=== PATIENT | male | born 1930 | race Caucasian/White ===

== ENCOUNTER 2017-10-28 14:16 | Inpatient (IN) | payer MEDICARE, BC ==
[~2017-10-28] VITALS: Ht 182.9 cm; Wt 89.9 kg
[2017-10-28] MEDS ORDERED: methylPREDNISolone SOD SUCC 125 MG/2 ML VIAL IV ONE (14:45)
[2017-10-28] MEDS ORDERED: IPRATROPIUM BROMIDE 0.5 MG/2.5 ML NEBU NEB ONE (14:45)
[2017-10-28] MEDS ORDERED: ALBUTEROL SULFATE 2.5 MG/3 ML NEBU NEB ONE (14:45)
[2017-10-28] MEDS ORDERED: methylPREDNISolone SOD SUCC 125 MG/2 ML VIAL ONE (14:45)
[2017-10-28] MEDS ORDERED: IPRATROPIUM BROMIDE 0.5 MG/2.5 ML NEBU ONE (14:48)
[2017-10-28] MEDS ORDERED: ALBUTEROL SULFATE 2.5 MG/ 0.5 ML NEBU ONE (14:48)
[2017-10-28 14:53] LABS: BASOPHILS % (AUTO) 0.2 % (0.0-2.0); HEMATOCRIT 33.4 % (36.7-47.1); HEMOGLOBIN 10.6 g/dL (12.5-16.3); LYMPHOCYTES # (AUTO) 0.4 K/uL (20.0-40.0); LYMPHOCYTES % (AUTO) 4.1 % (20.5-51.5); MEAN CORPUSCULAR HEMOGLOBIN 29.5 uug (23.8-33.4); MEAN CORPUSCULAR HGB CONC 32 g/dL (32.5-36.3); MEAN CORPUSCULAR VOLUME 92.8 fL (73.0-96.2); MONOCYTES # (AUTO) 0.7 K/uL (2.0-10.0); MONOCYTES % (AUTO) 6.5 % (0.0-11.0); NEUTROPHILS % (AUTO) 89.2 % (38.5-71.5); PLATELET COUNT (AUTO) 303 K/uL (152-348); WHITE BLOOD COUNT (AUTO) 10.1 K/uL (3.6-10.2)
[2017-10-28] MEDS ORDERED: MIRT15TA7 PO (15:03)
[2017-10-28] MEDS ORDERED: WARF2.5T85 PO (15:03)
[2017-10-28] MEDS ORDERED: MONT10TA22 PO (15:03)
[2017-10-28] MEDS ORDERED: IPRA3AMP IH (15:03)
[2017-10-28] MEDS ORDERED: CLOP75TA15 PO (15:03)
[2017-10-28] MEDS ORDERED: POLY15DR57 OP (15:03)
[2017-10-28] MEDS ORDERED: METH4TAB17 PO (15:03)
[2017-10-28] MEDS ORDERED: TRIA15CR2 TP (15:03)
[2017-10-28] MEDS ORDERED: MENT118G TP (15:03)
[2017-10-28] MEDS ORDERED: TAMS0.4C34 PO (15:03)
[2017-10-28] MEDS ORDERED: FINA5TAB11 PO (15:03)
[2017-10-28] MEDS ORDERED: POTA-88 PO (15:03)
[2017-10-28] MEDS ORDERED: ALBU5SOL17 IH (15:03)
[2017-10-28] MEDS ORDERED: CARV12.52 PO (15:03)
[2017-10-28] MEDS ORDERED: ROSU10TA27 PO (15:03)
[2017-10-28] MEDS ORDERED: AMLO5TAB2 PO (15:03)
[2017-10-28] MEDS ORDERED: IRBE150T28 PO (15:03)
[2017-10-28] MEDS ORDERED: ALBU2.5V38 IH (15:03)
[2017-10-28] MEDS ORDERED: FLUT1BLS4 IH (15:03)
[2017-10-28] MEDS ORDERED: FURO20TA4 PO (15:03)
[2017-10-28] MEDS ORDERED: ALPR0.255 PO (15:03)
--- NOTE | 2017-10-28 15:16 | NUR ---
Patient is resting comfortably in bed with eyes closed, pending results and disposition.
[2017-10-28 15:18] LABS: CARBON DIOXIDE 25 mmol/L (21-32); CHLORIDE 110 mmol/L (98-107); CREATININE 2.1 mg/dL (0.6-1.3); GLUCOSE 143 mg/dL (74-106); UREA NITROGEN, BLOOD 60 mg/dL (7-18)
[2017-10-28 15:22] LABS: BAND % (MANUAL) 5 % (0-10); LYMPHOCYTES % (MANUAL) 5 % (20-40); MONOCYTES % (MANUAL) 4 % (2-10)
[2017-10-28 15:23] LABS: METAMYELOCYTES % 2 % (0-1); NEUTROPHILS % (MANUAL) 84 % (42-75)
[2017-10-28 15:33] LABS: ALANINE AMINOTRANSFERASE 56 U/L (16-63); ALKALINE PHOSPHATASE 88 U/L (50-136); ASPARTATE AMINOTRANSFERASE 32 U/L (15-37); BILIRUBIN,TOTAL 0.9 mg/dL (0.2-1.0); CREATINE KINASE, TOTAL 89 U/L (39-308)
[2017-10-28] MEDS ORDERED: FUROSEMIDE 20 MG/2 ML VIAL IV ONE ×2 (16:02→16:15)
[2017-10-28] MEDS ORDERED: CEFTRIAXONE 1 G VIAL ONE (16:12)
[2017-10-28] MEDS ORDERED: FUROSEMIDE 40 MG/4 ML VIAL ONE (16:12)
[2017-10-28] MEDS ORDERED: INSULIN REGULAR, HUMAN 1,000 UNITS/10 ML VIAL IV ONE (16:14)
[2017-10-28] MEDS ORDERED: SODIUM BICARBONATE 8.4% 50 MEQ/50 ML VIAL IV ONE (16:15)
[2017-10-28] MEDS ORDERED: DEXTROSE 50% 50 ML DISP.SYRIN IV ONE (16:15)
[2017-10-28] MEDS ORDERED: CEFTRIAXONE 1 G in IV DEXTROSE 5% 50 ML IV ONE (16:15)
--- NOTE | 2017-10-28 16:16 | NUR ---
IV Lasix order verified with Dr Marie: Only 40mg IV Lasix and not 80mg IV.
[2017-10-28] MEDS ORDERED: SODIUM BICARBONATE 8.4% 50 MEQ/50 ML DISP.SYRIN IV ONE (16:21)
[2017-10-28] MEDS ORDERED: DEXTROSE 50% 50 ML DISP.SYRIN ONE (16:30)
[2017-10-28] MEDS ORDERED: INSULIN REGULAR, HUMAN 300 UNIT/3 ML VIAL ONE (16:30)
--- NOTE | 2017-10-28 16:39 | NUR ---
Patient is resting comfortably on gurney, eyes are closed, mouth breathing noted, respiration: nonlabored with occasional congestive coughing heard. Monitored closely.
--- NOTE | 2017-10-28 16:55 | NUR ---
Nursing update given to 2nd floor nurse Yoselin regarding serum potassium treatment & IV antibiotic medicine given.
--- NOTE | 2017-10-28 16:55 | NUR ---
patient was received by ER, vitals recorded, patient oriented to room, but patient's concentration was very poor, and reports being tired. Patient on 2L O2, saturation 92%. Wounds documented, and pictures taken. Patients urine collected for lab. Bed in low position, side rails up x2, bed alarm on.
[2017-10-28 17:14] VITALS: BP 104/76
[2017-10-28] MEDS ORDERED: MORPHINE SULFATE 2 MG/1 ML DISP.SYRIN IV PRN (18:45)
[2017-10-28] MEDS ORDERED: ONDANSETRON 4 MG/2 ML VIAL IV PRN (18:45)
[2017-10-28] MEDS ORDERED: MORPHINE SULFATE 4 MG/1 ML DISP.SYRIN IV PRN (19:00)
[2017-10-28] MEDS: LEVOFLOXACIN 250MG /D5W 250 MG in PREMIXED 1 EACH IV SCH (19:41)
[2017-10-28] MEDS: Z GUARD REMEDY PASTE 57 GM TUBE TOP SCH (19:41)
[2017-10-28 20:00] VITALS: BP 123/65
--- NOTE | 2017-10-28 20:10 | NUR ---
Received patient in bed resting comfortably, no signs of distress noted. Vital signs are WNL, A-paced on the monitor. Levaquin 250 mg IVPB adm as ordered.
[2017-10-28] MEDS ORDERED: DOCUSATE SODIUM 250 MG CAPSULE PO SCH (21:00)
[2017-10-28 21:09] LABS: *BILIRUBIN,URIN NEGATIVE (NEGATIVE); *BLOOD, URINE NEGATIVE (NEGATIVE); *CLARITY,URINE CLEAR (CLEAR); *COLOR,URINE YELLOW (YELLOW); *KETONES,URINE NEGATIVE (NEGATIVE); *PROTEIN,URINE 1+ (NEGATIVE); *UROBILINOGEN,URINE 0.2 E.U./dl (NORMAL); LEUKOCYTE ESTERASE ,URINE NEGATIVE (NEGATIVE); NITRITE, URINE NEGATIVE (NEGATIVE); PH,URINE 5.5 (5.0-8.0); UGLUCOSE NEGATIVE (NEGATIVE)
[2017-10-28] MEDS: ACETAMINOPHEN 325 MG TABLET PO PRN (21:10)
[2017-10-28] MEDS: MONTELUKAST SODIUM 10 MG TABLET PO SCH (21:10)
[2017-10-28] MEDS: MIRTAZAPINE 15 MG TABLET PO SCH (21:10)
[2017-10-28] MEDS: TAMSULOSIN HCL 0.4 MG CAP.SR.24H PO SCH (21:10)
[2017-10-28] MEDS: DOCUSATE SODIUM 100 MG CAPSULE PO SCH (21:10)
[2017-10-28 21:17] LABS: MUCUS,URINE MODERATE /LPF (0-FEW); RBC,URINE 0-3 /HPF (0-3); WBC,URINE 0-3 /HPF (0-3)
[2017-10-29] VITALS: BP 162/81
[2017-10-29 04:00] VITALS: BP 172/83
[2017-10-29] MEDS: ALBUTEROL SULFATE 2.5 MG/3 ML NEBU NEB PRN ×4 (05:40→22:57)
[2017-10-29] MEDS: PANTOPRAZOLE SODIUM 40 MG TABLET.DR PO SCH (05:48)
[2017-10-29] MEDS: FUROSEMIDE 20 MG/2 ML VIAL IV SCH (05:52)
--- NOTE | 2017-10-29 05:55 | NUR ---
Sponge bath provided, exertional SOB & wheezing noted. Breathing treatment provided by RT, early dose of Lasix 20 mg IVP adm. A-paced on the monitor w/ HR 90s.
[2017-10-29 06:43] VITALS: BP 147/80
--- NOTE | 2017-10-29 06:44 | NUR ---
Patient calm at this time post breathing treatment. Re-checked BP- shows 147/80, A-paced on the monitor w/ HR 60.
--- NOTE | 2017-10-29 07:15 | NUR ---
RECEIVED REPORT FROM AWNING FINISHER NURSE, PATIENT IN BED ASLEEP AND AROUSABLE. NO DISTRESS NOTED AT THIS TIME, BED IN LOW POSITION, SIDE RAILS UP X2.
[2017-10-29 07:17] LABS: BASOPHILS % (AUTO) 0.1 % (0.0-2.0); HEMATOCRIT 34.2 % (36.7-47.1); LYMPHOCYTES # (AUTO) 0.4 K/uL (20.0-40.0); LYMPHOCYTES % (AUTO) 4.5 % (20.5-51.5); MEAN CORPUSCULAR HEMOGLOBIN 29.6 uug (23.8-33.4); MEAN CORPUSCULAR HGB CONC 32 g/dL (32.5-36.3); MEAN CORPUSCULAR VOLUME 92.3 fL (73.0-96.2); MONOCYTES # (AUTO) 0.3 K/uL (2.0-10.0); MONOCYTES % (AUTO) 3.5 % (0.0-11.0); NEUTROPHILS # (AUTO) 7.9 K/uL (1.8-8.9); NEUTROPHILS % (AUTO) 91.9 % (38.5-71.5); PLATELET COUNT (AUTO) 304 K/uL (152-348); WHITE BLOOD COUNT (AUTO) 8.6 K/uL (3.6-10.2)
[2017-10-29 08:12] LABS: THYROID STIMULATING HORMONE 1.206 mIU/mL (0.358-3.740)
[2017-10-29 08:30] LABS: ALANINE AMINOTRANSFERASE 61 U/L (16-63); ALKALINE PHOSPHATASE 87 U/L (50-136); ASPARTATE AMINOTRANSFERASE 33 U/L (15-37); BILIRUBIN,TOTAL 0.5 mg/dL (0.2-1.0); CARBON DIOXIDE 23 mmol/L (21-32); CHLORIDE 107 mmol/L (98-107); CHOLESTEROL 138 mg/dL (<200); GLUCOSE 133 mg/dL (74-106); HDL CHOLESTEROL 60 mg/dL (40-60); MAGNESIUM 2.7 mg/dL (1.8-2.4); PHOSPHOROUS 6.3 mg/dL (2.5-4.9); POTASSIUM 5.8 mmol/L (3.5-5.1); TRIGLYCERIDES 37 MG/DL (30-150); UREA NITROGEN, BLOOD 61 mg/dL (7-18)
[2017-10-29 08:37] LABS: IRON, SERUM 34 ug/dL (50-175)
[2017-10-29] MEDS: FINASTERIDE 5 MG TABLET PO SCH (08:41)
[2017-10-29] MEDS: CLOPIDOGREL 75 MG TABLET PO SCH (08:44)
[2017-10-29] MEDS: AMLODIPINE 5 MG TABLET PO SCH (08:44)
[2017-10-29] MEDS: Z GUARD REMEDY PASTE 57 GM TUBE TOP SCH ×2 (08:46→19:58)
[2017-10-29] MEDS ORDERED: TRIAMCINOLONE ACET 0.5% CREAM 15 GM TUBE TP SCH (09:00)
[2017-10-29 11:11] VITALS: BP 126/53
[2017-10-29] MEDS ORDERED: BUMETANIDE INJ 3 MG in IV DEXTROSE 5% 38 ML IV ONE ×2 (12:00→14:00)
[2017-10-29] MEDS ORDERED: BUMETANIDE 1 MG/4 ML VIAL ONE (12:38)
--- NOTE | 2017-10-29 12:47 | NUR ---
WOUND CARE CONSULT: LIMITED ASSESSMENT TODAY DUE TO PT HAVING PROCEDURE/THEN SERVED LUNCH TRAY. RT LOWER LEG NOTED TO HAVE DRY ABRASIONS AND BRUISING. NO DRAINAGE NOTED. CURRENT ANGEL SCORE IS 19. ALL SKIN PROTECTION MEASURES IN PLACE AND DISCUSSED WITH NURSING STAFF. WILL SEE PRN. GOMES IN AGREEMENT WITH PLAN OF CARE. Addendum: 10/29/17 at 1249 by JAD MENESES RN Amended: Links added.
[2017-10-29 14:34] LABS: *BILIRUBIN,URIN NEGATIVE (NEGATIVE); *BLOOD, URINE NEGATIVE (NEGATIVE); *CLARITY,URINE CLEAR (CLEAR); *COLOR,URINE YELLOW (YELLOW); *KETONES,URINE NEGATIVE (NEGATIVE); *PROTEIN,URINE NEGATIVE (NEGATIVE); *UROBILINOGEN,URINE 0.2 E.U./dl (NORMAL); LEUKOCYTE ESTERASE ,URINE NEGATIVE (NEGATIVE); NITRITE, URINE NEGATIVE (NEGATIVE); UGLUCOSE NEGATIVE (NEGATIVE)
[2017-10-29 14:43] LABS: *CREATININE,URINE 41.6 mg/dL (30-125); *URINE TOTAL PROTEIN RANDOM 24.1 mg/dL (<150/24HR)
[2017-10-29 14:45] LABS: BACTERIA,URINE NONE SEEN /HPF (NONE SEEN); RBC,URINE 0-3 /HPF (0-3); SQUAMOUS EPITHELIAL CELL,UR FEW /HPF (NONE SEEN); WBC,URINE 0-3 /HPF (0-3)
[2017-10-29 15:04] VITALS: BP 127/59
--- NOTE | 2017-10-29 18:21 | NUR ---
Patient has been cooperative with care, left arm swollen and was elevated. Arm band was cut off, swelling slowly subsided by end of shift. Currently patient in bed awake, no distress noted, bed in low position, side rails up x2, bed alarm on. Patient was evaluated by PT, OT, and ST. See all recommendations in notes.
[2017-10-29] MEDS: LEVOFLOXACIN 250MG /D5W 250 MG in PREMIXED 1 EACH IV SCH (19:52)
[2017-10-29] MEDS: TAMSULOSIN HCL 0.4 MG CAP.SR.24H PO SCH (19:57)
[2017-10-29] MEDS: MONTELUKAST SODIUM 10 MG TABLET PO SCH (19:57)
[2017-10-29] MEDS: DOCUSATE SODIUM 100 MG CAPSULE PO SCH (19:57)
[2017-10-29] MEDS: ALPRAZOLAM 0.25 MG TABLET PO PRN (19:57)
[2017-10-29] MEDS: MIRTAZAPINE 15 MG TABLET PO SCH (19:57)
[2017-10-29] MEDS: TRIAMCINOLONE ACET 0.1% CREAM 15 GM TUBE TOP PRN (19:59)
[2017-10-29 20:00] VITALS: BP 118/59
[2017-10-30] VITALS: BP 128/89
[2017-10-30] MEDS: ACETAMINOPHEN 325 MG TABLET PO PRN ×2 (01:23→14:04)
[2017-10-30] MEDS: ALBUTEROL SULFATE 2.5 MG/3 ML NEBU NEB PRN (02:17)
[2017-10-30] MEDS: FUROSEMIDE 20 MG/2 ML VIAL IV SCH (03:51)
[2017-10-30 04:00] VITALS: BP 145/69
--- NOTE | 2017-10-30 04:05 | NUR ---
Audible wheezing noted, early dose of Lasix 20 mg IVP adm. Incontinence care provided, repositioned in bed. Tele A-paced.
[2017-10-30] MEDS: PANTOPRAZOLE SODIUM 40 MG TABLET.DR PO SCH (05:25)
--- NOTE | 2017-10-30 06:28 | NUR ---
Fairly rested, frequent urination noted, patient on daily Lasix. Breathing treatment provided PRN. A-pacing on the monitor. Vital signs are WNL.
[2017-10-30 06:34] LABS: BASOPHILS % (AUTO) 0.1 % (0.0-2.0); EOSINOPHILS % (AUTO) 0.2 % (0.0-7.0); HEMATOCRIT 33.7 % (36.7-47.1); HEMOGLOBIN 10.8 g/dL (12.5-16.3); LYMPHOCYTES # (AUTO) 0.6 K/uL (20.0-40.0); LYMPHOCYTES % (AUTO) 4.9 % (20.5-51.5); MEAN CORPUSCULAR HEMOGLOBIN 29.7 uug (23.8-33.4); MEAN CORPUSCULAR HGB CONC 32 g/dL (32.5-36.3); MEAN CORPUSCULAR VOLUME 92.4 fL (73.0-96.2); MONOCYTES # (AUTO) 1.3 K/uL (2.0-10.0); MONOCYTES % (AUTO) 10.8 % (0.0-11.0); NEUTROPHILS # (AUTO) 10.2 K/uL (1.8-8.9); PLATELET COUNT (AUTO) 291 K/uL (152-348); RED BLOOD CELL COUNT(AUTO) 3.64 MIL/uL (4.06-5.63); WHITE BLOOD COUNT (AUTO) 12.2 K/uL (3.6-10.2)
[2017-10-30 07:25] LABS: ALANINE AMINOTRANSFERASE 65 U/L (16-63); ALKALINE PHOSPHATASE 74 U/L (50-136); ASPARTATE AMINOTRANSFERASE 27 U/L (15-37); BILIRUBIN,TOTAL 0.6 mg/dL (0.2-1.0); CARBON DIOXIDE 29 mmol/L (21-32); CHLORIDE 107 mmol/L (98-107); CREATINE KINASE, TOTAL 57 U/L (39-308); CREATININE 2.1 mg/dL (0.6-1.3); GLUCOSE 96 mg/dL (74-106); MAGNESIUM 2.5 mg/dL (1.8-2.4); PHOSPHOROUS 5.3 mg/dL (2.5-4.9); POTASSIUM 4.9 mmol/L (3.5-5.1); TOTAL PROTEIN, SERUM 6.2 g/dL (6.4-8.2); UREA NITROGEN, BLOOD 71 mg/dL (7-18)
--- NOTE | 2017-10-30 08:00 | NUR ---
AWAKE ALERT X3 COOPERATE WELL NO SOB OR PAIN ON ASPIRATION AND FALL PRECAUTION BED ALARM ON AND CALL LIGHT IN REACH INSTRUCTION TO CALL WHEN NEED
[2017-10-30] MEDS: FINASTERIDE 5 MG TABLET PO SCH (08:17)
[2017-10-30] MEDS: CLOPIDOGREL 75 MG TABLET PO SCH (08:18)
[2017-10-30] MEDS: AMLODIPINE 5 MG TABLET PO SCH (08:18)
[2017-10-30] MEDS: TRIAMCINOLONE ACET 0.1% CREAM 15 GM TUBE TOP PRN (08:19)
[2017-10-30] MEDS: Z GUARD REMEDY PASTE 57 GM TUBE TOP SCH ×2 (08:19→20:07)
[2017-10-30 11:57] VITALS: BP 116/56
--- NOTE | 2017-10-30 12:00 | NUR ---
DR LEE SEE PATIENT AND ORDER INFLUENZA SCREEN /NOSE SWAB SENT TO LAB ORDER
--- NOTE | 2017-10-30 13:42 | NUR ---
WOUND CARE CONSULT: PT SEEN FOR FULL SKIN ASSESSMENT. BLANCHABLE REDNESS TO BUTTOCKS NOTED. PT IS INCONTINENT OF URINE AT TIMES. PT ABLE TO ASSIST WITH TURNING AND REPOSITIONING IN BED. CURRENT ANGEL SCORE IS 19. ALL SKIN PROTECTION MEASURES IN PLACE AND DISCUSSED WITH NURSING STAFF. WILL SEE PRN. GOMES IN AGREEMENT WITH PLAN OF CARE.
[2017-10-30] MEDS: ALPRAZOLAM 0.25 MG TABLET PO PRN (14:04)
[2017-10-30] MEDS: FLUTICASONE/VILANTEROL 1 EACH BLST.W.DEV INH SCH (14:06)
[2017-10-30 16:00] VITALS: BP 150/54
--- NOTE | 2017-10-30 16:01 | NUR ---
Nutrition consult received for "wounds". Chart reviewed. Per wound assessment (10/30): blanchable redness to medial sacrum, patient is incontinent of urine at times. No open wounds/pressure wounds were reported. Patient is on a cardiac diet eating fairly, consumed 100% of breakfast today. No unintentional weight loss in past 3 months. BMI: 26. Will conduct full nutrition assessment per nutrition policy. Addendum: 10/30/17 at [address] Amended: Links added.
--- NOTE | 2017-10-30 17:30 | NUR ---
DR BURRIS SEEN PATIENT AND D/C TELE AT THIS TIME
--- NOTE | 2017-10-30 18:00 | NUR ---
STABLE HEMODYNAMIC STATUS PAIN UNDER CONTROL NO ACUTE DISTRESS SAFETY MEASURE PROVIDED BED ALARM ON AND CALL LIGHT IN REACH
[2017-10-30 20:00] VITALS: BP 123/63
--- NOTE | 2017-10-30 20:00 | NUR ---
PATIENT IS AWAKE IN BED, HE'S AAOX2 DENIES PAIN NO ACUTE DISTRESS NOTED ON ASSESSMENT. PATIENT C/O OF BEING TOO TIRED AND LETHARGIC. SAFETY MEASURES IN PLACE, BED ALARM ON AND CALL LIGHT LEFT WITHIN PATIENT'S REACH
[2017-10-30] MEDS: LEVOFLOXACIN 250MG /D5W 250 MG in PREMIXED 1 EACH IV SCH (20:05)
[2017-10-30] MEDS: MIRTAZAPINE 15 MG TABLET PO SCH (20:06)
[2017-10-30] MEDS: MONTELUKAST SODIUM 10 MG TABLET PO SCH (20:06)
[2017-10-30] MEDS: DOCUSATE SODIUM 100 MG CAPSULE PO SCH (20:06)
[2017-10-30] MEDS: TAMSULOSIN HCL 0.4 MG CAP.SR.24H PO SCH (20:06)
[2017-10-31 04:00] VITALS: BP 127/69
--- NOTE | 2017-10-31 05:50 | NUR ---
Patient slept well through the shift, no c/o pain or any distress on this shift. vss within baseline. Patient confused at times but easily redirectable. safety measures maintained at all times
[2017-10-31] MEDS: PANTOPRAZOLE SODIUM 40 MG TABLET.DR PO SCH (06:21)
[2017-10-31 06:52] LABS: EOSINOPHILS # (AUTO) 0.4 K/uL (0.0-0.7); EOSINOPHILS % (AUTO) 4.7 % (0.0-7.0); HEMATOCRIT 31.9 % (36.7-47.1); HEMOGLOBIN 10.6 g/dL (12.5-16.3); LYMPHOCYTES # (AUTO) 0.5 K/uL (20.0-40.0); LYMPHOCYTES % (AUTO) 5.8 % (20.5-51.5); MEAN CORPUSCULAR HGB CONC 33 g/dL (32.5-36.3); MEAN CORPUSCULAR VOLUME 90.6 fL (73.0-96.2); MONOCYTES # (AUTO) 1.1 K/uL (2.0-10.0); MONOCYTES % (AUTO) 11.8 % (0.0-11.0); NEUTROPHILS # (AUTO) 7.3 K/uL (1.8-8.9); NEUTROPHILS % (AUTO) 77.7 % (38.5-71.5); PLATELET COUNT (AUTO) 291 K/uL (152-348); RED BLOOD CELL COUNT(AUTO) 3.52 MIL/uL (4.06-5.63); WHITE BLOOD COUNT (AUTO) 9.3 K/uL (3.6-10.2)
[2017-10-31 07:15] LABS: CARBON DIOXIDE 28 mmol/L (21-32); CHLORIDE 108 mmol/L (98-107); CREATININE 2.1 mg/dL (0.6-1.3); GLUCOSE 94 mg/dL (74-106); MAGNESIUM 2.5 mg/dL (1.8-2.4); POTASSIUM 4.9 mmol/L (3.5-5.1); UREA NITROGEN, BLOOD 63 mg/dL (7-18)
--- NOTE | 2017-10-31 07:30 | NUR ---
Received pt in bed sleeping but easily arousable. No s/s of immediate distress, discomfort of SOB. Bed at lowest position for safety and call light within reach for assistance.
[2017-10-31 08:14] LABS: A/G RATIO 1.1 (0.7-1.7); ALBUMIN 3.1 g/dL (2.9-4.4); ALPHA-1-GLOBULIN 0.2 g/dL (0.0-0.4); ALPHA-2-GLOBULIN 0.8 g/dL (0.4-1.0); BETA GLOBULIN 0.8 g/dL (0.7-1.3); GAMMA GLOBULIN 0.9 g/dL (0.4-1.8); GLOBULIN, TOTAL 2.7 g/dL (2.2-3.9); M-SPIKE Not Observed g/dL (Not Observed)
--- NOTE | 2017-10-31 08:38 | NUR ---
Thoracentesis on hold do to coags elevated. INR-4.8 PT 50, both need to be corrected to continue. Voiced concern to STACIA Sharma.
[2017-10-31] MEDS: AMLODIPINE 5 MG TABLET PO SCH (09:15)
[2017-10-31] MEDS: FINASTERIDE 5 MG TABLET PO SCH (09:16)
[2017-10-31] MEDS: FUROSEMIDE 20 MG/2 ML VIAL IV SCH (09:16)
[2017-10-31] MEDS: FLUTICASONE/VILANTEROL 1 EACH BLST.W.DEV INH SCH (09:16)
[2017-10-31] MEDS: Z GUARD REMEDY PASTE 57 GM TUBE TOP SCH ×2 (09:16→20:34)
[2017-10-31] MEDS: CLOPIDOGREL 75 MG TABLET PO SCH (10:16)
[2017-10-31 11:45] VITALS: BP 133/58
--- NOTE | 2017-10-31 12:20 | NUR ---
Two person assist to the bedside commode.
[2017-10-31 16:07] VITALS: BP 144/66
--- NOTE | 2017-10-31 17:56 | NUR ---
Pt has been compliant with medications and nursing care. Noted the pt to be confused at some points stating he needed to go to his car, he forgets he is in the hospital, noted pt talking to himself and noted pt yelling for his son Alvarez. No immediate s/s of pain, distress, discomfort or SOB. Call light within reach for assistance.
[2017-10-31] MEDS: LEVOFLOXACIN 250MG /D5W 250 MG in PREMIXED 1 EACH IV SCH (19:00)
[2017-10-31 20:00] VITALS: BP 117/55
[2017-10-31] MEDS: ALBUTEROL SULFATE 2.5 MG/3 ML NEBU NEB PRN (20:15)
--- NOTE | 2017-10-31 20:30 | NUR ---
PT'S A/A/O X1;VERY CONFUSED,TRIED TO GOB MANY TIMES;PT STATED THAT "I WANT TO WALK AROUND HERE";REORIENTATION TO PT BUT PT STILL NEEDED TO REINFORCE DUE TO MENTAL STATUS;FALL PRECAUTION TO PT.BED ALARM'S ON. AT 21:10 ASSISTED PT FOR PM AND SKIN CARE;REPOSITION.PUDDING'S GIVEN TO PT REQUEST;PT TOLERATED WELL NOTED.CONTINUED MONITORING TO PT.
[2017-10-31] MEDS: MONTELUKAST SODIUM 10 MG TABLET PO SCH (20:34)
[2017-10-31] MEDS: TAMSULOSIN HCL 0.4 MG CAP.SR.24H PO SCH (20:34)
[2017-10-31] MEDS: DOCUSATE SODIUM 100 MG CAPSULE PO SCH (20:34)
[2017-10-31] MEDS: MIRTAZAPINE 15 MG TABLET PO SCH (20:34)
[2017-10-31] MEDS: ALPRAZOLAM 0.25 MG TABLET PO PRN (22:57)
[2017-11-01 04:00] VITALS: BP 121/61
[2017-11-01 06:03] LABS: BASOPHILS % (AUTO) 0.1 % (0.0-2.0); EOSINOPHILS # (AUTO) 0.5 K/uL (0.0-0.7); EOSINOPHILS % (AUTO) 6.4 % (0.0-7.0); HEMATOCRIT 31.4 % (36.7-47.1); HEMOGLOBIN 10.3 g/dL (12.5-16.3); LYMPHOCYTES # (AUTO) 0.5 K/uL (20.0-40.0); LYMPHOCYTES % (AUTO) 7.5 % (20.5-51.5); MEAN CORPUSCULAR HEMOGLOBIN 29.6 uug (23.8-33.4); MEAN CORPUSCULAR HGB CONC 33 g/dL (32.5-36.3); MEAN CORPUSCULAR VOLUME 90.7 fL (73.0-96.2); MONOCYTES # (AUTO) 0.7 K/uL (2.0-10.0); MONOCYTES % (AUTO) 10.2 % (0.0-11.0); NEUTROPHILS # (AUTO) 5.5 K/uL (1.8-8.9); NEUTROPHILS % (AUTO) 75.8 % (38.5-71.5); PLATELET COUNT (AUTO) 255 K/uL (152-348); RED BLOOD CELL COUNT(AUTO) 3.46 MIL/uL (4.06-5.63); WHITE BLOOD COUNT (AUTO) 7.3 K/uL (3.6-10.2)
--- NOTE | 2017-11-01 06:10 | NUR ---
PT SLEPT ON/OFF BUT NO SOB NOTED,STILL VERY CONFUSED.PT SLEPT ~ 5-6 HOURS IN THE SHIFT,MOSTLY WHEN PT'S AWAKE,HE'LL TRY TO GET OUT OF BED.SAFETY REINFORCE.BED ALARM'S ON.
[2017-11-01 06:14] LABS: CARBON DIOXIDE 32 mmol/L (21-32); CHLORIDE 109 mmol/L (98-107); CREATININE 1.8 mg/dL (0.6-1.3); GLUCOSE 101 mg/dL (74-106); MAGNESIUM 2.5 mg/dL (1.8-2.4); PHOSPHOROUS 3.5 mg/dL (2.5-4.9); POTASSIUM 4.5 mmol/L (3.5-5.1); UREA NITROGEN, BLOOD 50 mg/dL (7-18)
[2017-11-01] MEDS: PANTOPRAZOLE SODIUM 40 MG TABLET.DR PO SCH (06:37)
--- NOTE | 2017-11-01 08:00 | NUR ---
AWAKE ALERT NO SS OF PAIN OR SOB. PLAN THORACENTESIS TODAY PENDING INR RESULTS
[2017-11-01] MEDS: AMLODIPINE 5 MG TABLET PO SCH (08:55)
[2017-11-01] MEDS: CLOPIDOGREL 75 MG TABLET PO SCH (08:55)
[2017-11-01] MEDS: FUROSEMIDE 20 MG/2 ML VIAL IV SCH (08:56)
[2017-11-01] MEDS: FINASTERIDE 5 MG TABLET PO SCH (08:56)
[2017-11-01] MEDS: FLUTICASONE/VILANTEROL 1 EACH BLST.W.DEV INH SCH (09:03)
[2017-11-01] MEDS: ALPRAZOLAM 0.25 MG TABLET PO PRN (09:03)
[2017-11-01] MEDS: Z GUARD REMEDY PASTE 57 GM TUBE TOP SCH ×2 (09:04→20:49)
[2017-11-01 11:16] VITALS: BP 104/59
--- NOTE | 2017-11-01 12:00 | NUR ---
SON CALLED ABOUT NEED FOR CONSENT FOR THORACENTESIS CONSENTED VERBALLY VIA PHONE
--- NOTE | 2017-11-01 14:49 | NUR ---
THORACENTESIS STARTED AT BEDSIDE UNDER LOCAL ANESTHESIA BY RADIOLOGIST ON DUTY
--- NOTE | 2017-11-01 15:06 | NUR ---
LEFT SIDE THORACENTESIS COMPLETED FOLLOWED WITH PCXR.
--- NOTE | 2017-11-01 15:07 | NUR ---
THORACENTESIS FLUID SENT TO LAB FOR ANALYSIS
[2017-11-01 15:23] VITALS: BP 155/64
[2017-11-01 15:33] VITALS: BP 149/57
--- NOTE | 2017-11-01 17:31 | NUR ---
CXR POST THORACENTESIS NEGATIVE FOR COMPLICATION. PATIENT DENIES SOB,CHEST PAIN. AWAITING RESULTS OF THORACENTESIS FLUID. DC PLANNING INITIATED
[2017-11-01] MEDS: ALBUTEROL SULFATE 2.5 MG/3 ML NEBU NEB PRN (17:55)
--- NOTE | 2017-11-01 19:30 | NUR ---
PT ALERT AWAKE IN ROOM IN NO ACUTE DISTRESS. DENIES ANY PAIN, DISCOMFORT OR SOB. NO S/S OF RESP DISTRESS. ON 2L/MIN VIA N/C. NO REACTION TO RECENT LEVAQUIN PO GIVEN. AIR MATTRESS NOTED AND PT MADE AWARE TO USE CALL LIGHT FOR ASSISTANCE NEEDED. CONTINUE TO MONITOR.
[2017-11-01 20:18] VITALS: BP 174/67
[2017-11-01] MEDS: LEVOFLOXACIN 250 MG TABLET PO SCH (20:45)
[2017-11-01] MEDS: MONTELUKAST SODIUM 10 MG TABLET PO SCH (20:45)
[2017-11-01] MEDS: MIRTAZAPINE 15 MG TABLET PO SCH (20:45)
[2017-11-01] MEDS: TAMSULOSIN HCL 0.4 MG CAP.SR.24H PO SCH (20:45)
[2017-11-01] MEDS: DOCUSATE SODIUM 100 MG CAPSULE PO SCH (20:46)
[2017-11-02 04:00] VITALS: BP 175/74
--- NOTE | 2017-11-02 06:00 | NUR ---
PT'S BLOOD PRESSURE NOTED 175/74. DENIES ANY HEADACHES, PAIN, OR DISCOMFORT. ABLE TO FOLLOW SIMPLE COMMANDS. TEMP 97.9. NO S/S OF RESP DISTRESS. CALL LIGHT WITHIN REACH. CONTINUE TO MONITOR.
[2017-11-02 06:09] LABS: BASOPHILS % (AUTO) 0.5 % (0.0-2.0); EOSINOPHILS # (AUTO) 0.3 K/uL (0.0-0.7); EOSINOPHILS % (AUTO) 4.6 % (0.0-7.0); HEMATOCRIT 34.5 % (36.7-47.1); LYMPHOCYTES # (AUTO) 0.4 K/uL (20.0-40.0); LYMPHOCYTES % (AUTO) 5.5 % (20.5-51.5); MEAN CORPUSCULAR HEMOGLOBIN 29.4 uug (23.8-33.4); MEAN CORPUSCULAR HGB CONC 32 g/dL (32.5-36.3); MEAN CORPUSCULAR VOLUME 91.9 fL (73.0-96.2); MONOCYTES # (AUTO) 0.6 K/uL (2.0-10.0); MONOCYTES % (AUTO) 8.2 % (0.0-11.0); NEUTROPHILS # (AUTO) 6.1 K/uL (1.8-8.9); NEUTROPHILS % (AUTO) 81.2 % (38.5-71.5); PLATELET COUNT (AUTO) 276 K/uL (152-348); RED BLOOD CELL COUNT(AUTO) 3.75 MIL/uL (4.06-5.63); WHITE BLOOD COUNT (AUTO) 7.5 K/uL (3.6-10.2)
[2017-11-02] MEDS: PANTOPRAZOLE SODIUM 40 MG TABLET.DR PO SCH (06:13)
[2017-11-02] MEDS: AMLODIPINE 5 MG TABLET PO SCH (06:36)
[2017-11-02 06:41] LABS: CARBON DIOXIDE 31 mmol/L (21-32); CHLORIDE 111 mmol/L (98-107); CREATININE 1.6 mg/dL (0.6-1.3); GLUCOSE 118 mg/dL (74-106); MAGNESIUM 2.6 mg/dL (1.8-2.4); PHOSPHOROUS 3.1 mg/dL (2.5-4.9); POTASSIUM 4.8 mmol/L (3.5-5.1); UREA NITROGEN, BLOOD 41 mg/dL (7-18)
[2017-11-02 07:52] VITALS: BP 155/61
--- NOTE | 2017-11-02 08:00 | NUR ---
AWAKE ALERT AND PLEASANT NO SS OF DISTRESS, ROUTINE BREATHING TX GIVEN. DC PLAN INITIATED
[2017-11-02] MEDS: FINASTERIDE 5 MG TABLET PO SCH (08:39)
[2017-11-02] MEDS: FUROSEMIDE 20 MG/2 ML VIAL IV SCH (08:39)
[2017-11-02] MEDS: CLOPIDOGREL 75 MG TABLET PO SCH (08:39)
[2017-11-02] MEDS: FLUTICASONE/VILANTEROL 1 EACH BLST.W.DEV INH SCH (08:41)
[2017-11-02] MEDS: Z GUARD REMEDY PASTE 57 GM TUBE TOP SCH ×2 (08:46→20:03)
[2017-11-02] MEDS ORDERED: POTASSIUM CHLORIDE 20 MEQ TAB.PRT.SR PO ONE (10:00)
[2017-11-02] MEDS ORDERED: FUROSEMIDE 20 MG/2 ML VIAL IV ONE (10:00)
--- NOTE | 2017-11-02 10:00 | NUR ---
SEEN BY PHYSICAL THERAPIST SEE NOTES
[2017-11-02] MEDS: ALBUTEROL SULFATE 2.5 MG/3 ML NEBU NEB PRN ×2 (10:20→15:27)
[2017-11-02 11:53] VITALS: BP 136/55
--- NOTE | 2017-11-02 13:00 | NUR ---
SEEN BY DR MEEK, DR ECHEVERRIA AND DR REYES SEE NOTES. APPOINTMENT FOR FOLLOW-UP WITH DR ECHEVERRIA DONE AND FILTER TIP INSPECTOR TO BE DONE BY FAMILY/SNF.
[2017-11-02] MEDS ORDERED: LEVO500T2 PO (15:07)
[2017-11-02 15:32] VITALS: BP 132/60
--- NOTE | 2017-11-02 17:38 | NUR ---
REPORT GIVEN TO KALYN AT [facility] SON ALSO MADE AWARE OF TRANSFER. PT STABLE FOR TRANSFER AWAITING AMBULANCE FOR 193.
[2017-11-02] MEDS: MIRTAZAPINE 15 MG TABLET PO SCH (20:00)
[2017-11-02] MEDS: DOCUSATE SODIUM 100 MG CAPSULE PO SCH (20:00)
[2017-11-02] MEDS: TAMSULOSIN HCL 0.4 MG CAP.SR.24H PO SCH (20:00)
[2017-11-02] MEDS: LEVOFLOXACIN 250 MG TABLET PO SCH (20:01)
[2017-11-02] MEDS: MONTELUKAST SODIUM 10 MG TABLET PO SCH (20:01)
--- NOTE | 2017-11-02 22:38 | NUR ---
PATIENT TRANSFERRED TO [facility], PATIENT IN STABLE CONDITION, VSS STABLE
== END 2017-11-02 22:30 | DRG 291 ==
LOC: ER 14:16 → TELE 16:45 → MED 10-30 18:05
PROVIDERS: ADMIT Internal Medicine; ATTEND Nurse Practitioner Acute Care
PROC: 0W9B3ZX Drainage of Left Pleural Cavity, Percutaneous Approach, Diagnostic (ICD-10-PCS; principal; 2017-10-28)
DX: I13.0 Hypertensive heart and chronic kidney disease with heart failure and stage 1 through stage 4 chronic kidney disease, or unspecified chronic kidney disease (principal); J15.9 Unspecified bacterial pneumonia; N17.0 Acute kidney failure with tubular necrosis; G92 Toxic encephalopathy; J91.8 Pleural effusion in other conditions classified elsewhere; E87.5 Hyperkalemia; D68.9 Coagulation defect, unspecified; J44.0 Chronic obstructive pulmonary disease with (acute) lower respiratory infection; I42.9 Cardiomyopathy, unspecified; I50.33 Acute on chronic diastolic (congestive) heart failure; N25.81 Secondary hyperparathyroidism of renal origin; J44.1 Chronic obstructive pulmonary disease with (acute) exacerbation; Z95.1 Presence of aortocoronary bypass graft; N18.9 Chronic kidney disease, unspecified; I25.10 Atherosclerotic heart disease of native coronary artery without angina pectoris; Z95.810 Presence of automatic (implantable) cardiac defibrillator; N40.0 Benign prostatic hyperplasia without lower urinary tract symptoms; E78.5 Hyperlipidemia, unspecified; D63.8 Anemia in other chronic diseases classified elsewhere; I49.9 Cardiac arrhythmia, unspecified
CPT/HCPCS: 32555; 36415; 70030-TC; 71045; 76770; 83550; 83605; 83615; 83735; 83970; 83986; 84100; 84155; 84156; 84165; 84300; 84443; 85025; 85610; 87040; 87070; 87205; 87400; 92523; 93005; 93307; 94640; 94664; 97110; 97116; 97165; 97530; A4663; J0696; J1815; J1940; J1956; J2270; J2930; J3490; J3590; J7040; J7060

== ENCOUNTER 2017-11-13 21:11 | Inpatient (IN) | payer MEDICARE, BC ==
[~2017-11-13] VITALS: Ht 177.8 cm; Wt 83.0 kg
[~2017-11-13 21:11] MED LIST: ALBU2.5V38 IH; ALBU5SOL17 IH; ALPR0.255 PO; AMLO5TAB2 PO; CARV12.52 PO; CLOP75TA15 PO; FINA5TAB11 PO; FLUT1BLS4 IH; FURO20TA4 PO; IPRA3AMP IH; IRBE150T28 PO; LEVO500T2 PO; MENT118G TP; MIRT15TA7 PO; MONT10TA22 PO; POLY15DR57 OP; POTA-88 PO; ROSU10TA27 PO; TAMS0.4C34 PO; TRIA15CR2 TP; WARF2.5T85 PO
[2017-11-13] MEDS ORDERED: WARF1TAB86 PO (21:42)
[2017-11-13] MEDS ORDERED: METH113C20 TP (21:42)
[2017-11-13] MEDS ORDERED: ALBUTEROL SULFATE 2.5 MG/3 ML NEBU NEB ONE (21:45)
[2017-11-13] MEDS ORDERED: IPRATROPIUM BROMIDE 0.5 MG/2.5 ML NEBU NEB ONE (21:45)
[2017-11-13 21:56] LABS: CARBON DIOXIDE 27 mmol/L (21-32); CHLORIDE 106 mmol/L (98-107); CREATININE 1.7 mg/dL (0.6-1.3); GLUCOSE 176 mg/dL (74-106); UREA NITROGEN, BLOOD 24 mg/dL (7-18)
[2017-11-13 21:59] LABS: BASOPHILS % (AUTO) 0.1 % (0.0-2.0); EOSINOPHILS # (AUTO) 0.1 K/uL (0.0-0.7); EOSINOPHILS % (AUTO) 0.8 % (0.0-7.0); HEMATOCRIT 30.7 % (36.7-47.1); HEMOGLOBIN 10.3 g/dL (12.5-16.3); LYMPHOCYTES # (AUTO) 0.3 K/uL (20.0-40.0); LYMPHOCYTES % (AUTO) 3.5 % (20.5-51.5); MEAN CORPUSCULAR HGB CONC 33 g/dL (32.5-36.3); MEAN CORPUSCULAR VOLUME 89.9 fL (73.0-96.2); MONOCYTES # (AUTO) 0.7 K/uL (2.0-10.0); MONOCYTES % (AUTO) 7.6 % (0.0-11.0); NEUTROPHILS # (AUTO) 8.4 K/uL (1.8-8.9); PLATELET COUNT (AUTO) 158 K/uL (152-348); RED BLOOD CELL COUNT(AUTO) 3.41 MIL/uL (4.06-5.63); WHITE BLOOD COUNT (AUTO) 9.5 K/uL (3.6-10.2)
[2017-11-13 22:01] LABS: POTASSIUM 5.8 mmol/L (3.5-5.1)
[2017-11-13 22:02] LABS: ABG BASE EXCESS -1.7 mmol/L; ABG HCO3 25.2 mmol/L; ABG PCO2 52.8 mmHg (35.0-45.0); ABG PH 7.297 (7.350-7.450); ABG PO2 83.3 mmHg (75.0-100.0); ABG SITE LEFT RADIAL; ABG TOTAL HEMOGLOBIN 10.7 G/dL (13.5-18.0); COHb 1.8 % (0.5-1.5); MetHb 0.4 % (0.0-1.5)
[2017-11-13] MEDS ORDERED: ALBUTEROL SULFATE 2.5 MG/3 ML NEBU ONE (22:02)
[2017-11-13] MEDS ORDERED: IPRATROPIUM BROMIDE 0.5 MG/2.5 ML NEBU ONE (22:02)
[2017-11-13 22:08] LABS: ALANINE AMINOTRANSFERASE 32 U/L (16-63); ALKALINE PHOSPHATASE 110 U/L (50-136); ASPARTATE AMINOTRANSFERASE 22 U/L (15-37); BILIRUBIN,DIRECT 0.3 mg/dL (0.0-0.2); TOTAL PROTEIN, SERUM 7.2 g/dL (6.4-8.2)
[2017-11-13] MEDS ORDERED: NITROGLYCERIN OINT 1 GM PACKET TP ONE ×2 (23:00→23:06)
[2017-11-13] MEDS ORDERED: FUROSEMIDE 20 MG/2 ML VIAL IV ONE (23:00)
[2017-11-13] MEDS ORDERED: FUROSEMIDE 40 MG/4 ML VIAL ONE (23:07)
[2017-11-14] VITALS (11 sets, daily range): BP systolic 124–158; BP diastolic 55–85
[2017-11-14] MEDS ORDERED: ONDANSETRON 4 MG/2 ML VIAL IV PRN (01:00)
[2017-11-14] MEDS ORDERED: BUMETANIDE INJ 8 MG in IV DEXTROSE 5% 48 ML IV ONE (01:00)
[2017-11-14] MEDS ORDERED: BUMETANIDE 2.5 MG/10 ML VIAL ONE (01:27)
[2017-11-14] MEDS: ALPRAZOLAM 0.25 MG TABLET PO PRN (03:39)
[2017-11-14] MEDS: ALBUTEROL SULFATE 2.5 MG/3 ML NEBU IH PRN ×3 (07:52→14:50)
[2017-11-14 08:27] LABS: BASOPHILS % (AUTO) 0.3 % (0.0-2.0); EOSINOPHILS % (AUTO) 0.4 % (0.0-7.0); LYMPHOCYTES # (AUTO) 0.4 K/uL (20.0-40.0); LYMPHOCYTES % (AUTO) 6.2 % (20.5-51.5); MEAN CORPUSCULAR HEMOGLOBIN 30.2 uug (23.8-33.4); MEAN CORPUSCULAR HGB CONC 33 g/dL (32.5-36.3); MONOCYTES # (AUTO) 0.7 K/uL (2.0-10.0); MONOCYTES % (AUTO) 11.4 % (0.0-11.0); NEUTROPHILS % (AUTO) 81.7 % (38.5-71.5); RED BLOOD CELL COUNT(AUTO) 2.87 MIL/uL (4.06-5.63)
[2017-11-14] MEDS: FINASTERIDE 5 MG TABLET PO SCH (08:28)
[2017-11-14] MEDS: AMLODIPINE 5 MG TABLET PO SCH (08:29)
[2017-11-14] MEDS: CARVEDILOL 12.5 MG TABLET PO SCH ×2 (08:29→16:45)
[2017-11-14] MEDS: Z GUARD REMEDY PASTE 57 GM TUBE TOP PRN (08:30)
[2017-11-14 08:37] LABS: PLATELET COUNT (AUTO) 113 K/uL (152-348)
[2017-11-14 08:38] LABS: HEMATOCRIT 26.1 % (36.7-47.1); HEMOGLOBIN 8.7 g/dL (12.5-16.3); WHITE BLOOD COUNT (AUTO) 6.1 K/uL (3.6-10.2)
[2017-11-14 08:49] LABS: MAGNESIUM 1.9 mg/dL (1.8-2.4); PHOSPHOROUS 3.4 mg/dL (2.5-4.9)
[2017-11-14] MEDS: FLUTICASONE/VILANTEROL 1 EACH BLST.W.DEV INH SCH (09:20)
[2017-11-14] MEDS: FUROSEMIDE 20 MG/2 ML VIAL IV SCH ×2 (13:29→20:53)
[2017-11-14] MEDS ORDERED: WARFARIN SODIUM 1 MG TABLET PO SCH (18:00)
[2017-11-14] MEDS ORDERED: MAGNESIUM HYDROXIDE 30 ML LIQUID UDC PO PRN (19:30)
[2017-11-14] MEDS ORDERED: BISACODYL 10 MG SUPP.RECT RC PRN (19:30)
[2017-11-14] MEDS: TAMSULOSIN HCL 0.4 MG CAP.SR.24H PO SCH (20:52)
[2017-11-14] MEDS: MIRTAZAPINE 15 MG TABLET PO SCH (20:52)
[2017-11-14] MEDS: ATORVASTATIN 10 MG TABLET PO SCH (20:52)
[2017-11-14] MEDS: MONTELUKAST SODIUM 10 MG TABLET PO SCH (20:52)
[2017-11-14] MEDS ORDERED: LACTULOSE 20 G/30 ML LIQUID UDC PO ONE (21:00)
[2017-11-15 00:08] VITALS: BP 147/64
[2017-11-15 04:00] VITALS: BP 148/69
[2017-11-15 06:16] LABS: BASOPHILS % (AUTO) 0.1 % (0.0-2.0); EOSINOPHILS # (AUTO) 0.4 K/uL (0.0-0.7); HEMATOCRIT 25.1 % (36.7-47.1); HEMOGLOBIN 8.5 g/dL (12.5-16.3); LYMPHOCYTES # (AUTO) 0.4 K/uL (20.0-40.0); LYMPHOCYTES % (AUTO) 6.3 % (20.5-51.5); MEAN CORPUSCULAR HEMOGLOBIN 30.4 uug (23.8-33.4); MEAN CORPUSCULAR HGB CONC 34 g/dL (32.5-36.3); MEAN CORPUSCULAR VOLUME 89.2 fL (73.0-96.2); MONOCYTES # (AUTO) 0.7 K/uL (2.0-10.0); NEUTROPHILS # (AUTO) 4.4 K/uL (1.8-8.9); NEUTROPHILS % (AUTO) 75.6 % (38.5-71.5); PLATELET COUNT (AUTO) 124 K/uL (152-348); RED BLOOD CELL COUNT(AUTO) 2.81 MIL/uL (4.06-5.63); WHITE BLOOD COUNT (AUTO) 5.9 K/uL (3.6-10.2)
[2017-11-15 06:23] LABS: ALANINE AMINOTRANSFERASE 24 U/L (16-63); ALKALINE PHOSPHATASE 84 U/L (50-136); ASPARTATE AMINOTRANSFERASE 18 U/L (15-37); BILIRUBIN,TOTAL 0.8 mg/dL (0.2-1.0); CARBON DIOXIDE 30 mmol/L (21-32); CHLORIDE 106 mmol/L (98-107); CHOLESTEROL 106 mg/dL (<200); CREATININE 1.7 mg/dL (0.6-1.3); GLUCOSE 90 mg/dL (74-106); HDL CHOLESTEROL 61 mg/dL (40-60); MAGNESIUM 1.8 mg/dL (1.8-2.4); PHOSPHOROUS 4.1 mg/dL (2.5-4.9); POTASSIUM 4.4 mmol/L (3.5-5.1); TRIGLYCERIDES < 15 MG/DL (30-150); UREA NITROGEN, BLOOD 27 mg/dL (7-18)
[2017-11-15] MEDS ORDERED: MIDAZOLAM HCL 2 MG/2 ML VIAL ONE (07:07)
[2017-11-15] MEDS ORDERED: FENTANYL CITRATE 100 MCG/2 ML AMPUL ONE (07:08)
[2017-11-15 07:37] LABS: THYROID STIMULATING HORMONE 1.037 mIU/mL (0.358-3.740)
[2017-11-15 08:45] VITALS: BP 128/66
[2017-11-15] MEDS: FUROSEMIDE 20 MG/2 ML VIAL IV SCH (08:53)
[2017-11-15] MEDS: FINASTERIDE 5 MG TABLET PO SCH (08:53)
[2017-11-15] MEDS: AMLODIPINE 5 MG TABLET PO SCH (08:54)
[2017-11-15] MEDS: CARVEDILOL 12.5 MG TABLET PO SCH ×2 (08:54→16:30)
[2017-11-15] MEDS: FLUTICASONE/VILANTEROL 1 EACH BLST.W.DEV INH SCH (08:58)
[2017-11-15] MEDS: Z GUARD REMEDY PASTE 57 GM TUBE TOP PRN ×2 (08:59→20:04)
[2017-11-15 11:12] VITALS: BP 131/64
[2017-11-15] MEDS ORDERED: CEFAZOLIN 1 G VIAL MC ONE (11:42)
[2017-11-15 15:21] VITALS: BP 133/58
[2017-11-15] MEDS: FUROSEMIDE 20 MG TABLET PO SCH (15:31)
[2017-11-15] MEDS: ACETAMINOPHEN 325 MG TABLET PO PRN ×2 (15:31→20:03)
[2017-11-15 20:00] VITALS: BP 115/55
[2017-11-15] MEDS: MIRTAZAPINE 15 MG TABLET PO SCH (20:04)
[2017-11-15] MEDS: MONTELUKAST SODIUM 10 MG TABLET PO SCH (20:04)
[2017-11-15] MEDS: ATORVASTATIN 10 MG TABLET PO SCH (20:04)
[2017-11-15] MEDS: TAMSULOSIN HCL 0.4 MG CAP.SR.24H PO SCH (20:19)
[2017-11-15] MEDS: ALPRAZOLAM 0.25 MG TABLET PO PRN (23:56)
[2017-11-16] VITALS: BP 137/55
[2017-11-16 04:00] VITALS: BP 123/61
[2017-11-16] MEDS: FUROSEMIDE 20 MG TABLET PO SCH ×2 (08:22→16:12)
[2017-11-16] MEDS: AMLODIPINE 5 MG TABLET PO SCH (08:22)
[2017-11-16] MEDS: FINASTERIDE 5 MG TABLET PO SCH (08:23)
[2017-11-16] MEDS: CARVEDILOL 12.5 MG TABLET PO SCH ×2 (08:23→16:12)
[2017-11-16 11:31] VITALS: BP 142/61
[2017-11-16] MEDS: FLUTICASONE/VILANTEROL 1 EACH BLST.W.DEV INH SCH (11:34)
[2017-11-16 15:08] VITALS: BP 121/52
[2017-11-16 16:12] VITALS: BP 99/63
== END 2017-11-16 18:00 | DRG 291 ==
LOC: ER 21:12 → DOU 23:37 → TELE-TD 11-14 00:01 → TELE 11-15 14:12 → MED 11-16 15:54
PROVIDERS: ADMIT Nurse Practitioner Acute Care; ATTEND Nurse Practitioner Acute Care
PROC: 30233K1 Transfusion of Nonautologous Frozen Plasma into Peripheral Vein, Percutaneous Approach (ICD-10-PCS; 2017-11-14)
PROC: 5A09357 Assistance with Respiratory Ventilation, Less than 24 Consecutive Hours, Continuous Positive Airway Pressure (ICD-10-PCS; 2017-11-14)
PROC: 0W9B30Z Drainage of Left Pleural Cavity with Drainage Device, Percutaneous Approach (ICD-10-PCS; principal; 2017-11-15 07:24)
DX: I13.0 Hypertensive heart and chronic kidney disease with heart failure and stage 1 through stage 4 chronic kidney disease, or unspecified chronic kidney disease (principal); I50.33 Acute on chronic diastolic (congestive) heart failure; N17.0 Acute kidney failure with tubular necrosis; J96.02 Acute respiratory failure with hypercapnia; J91.8 Pleural effusion in other conditions classified elsewhere; I48.92 Unspecified atrial flutter; N18.9 Chronic kidney disease, unspecified; I25.10 Atherosclerotic heart disease of native coronary artery without angina pectoris; Z95.1 Presence of aortocoronary bypass graft; I35.0 Nonrheumatic aortic (valve) stenosis; Z95.810 Presence of automatic (implantable) cardiac defibrillator; E87.5 Hyperkalemia; T44.995A Adverse effect of other drug primarily affecting the autonomic nervous system, initial encounter; Y92.099 Unspecified place in other non-institutional residence as the place of occurrence of the external cause; I42.9 Cardiomyopathy, unspecified; M19.90 Unspecified osteoarthritis, unspecified site; J44.9 Chronic obstructive pulmonary disease, unspecified; F06.4 Anxiety disorder due to known physiological condition; Z79.01 Long term (current) use of anticoagulants; Z79.899 Other long term (current) drug therapy; N40.0 Benign prostatic hyperplasia without lower urinary tract symptoms; F03.90 Unspecified dementia, unspecified severity, without behavioral disturbance, psychotic disturbance, mood disturbance, and anxiety; E78.5 Hyperlipidemia, unspecified; D63.8 Anemia in other chronic diseases classified elsewhere
CPT/HCPCS: 36415; 36600; 70030-TC; 71045; 76770; 83605; 83735; 84100; 84443; 85025; 85610; 86900; 86901; 87040; 93005; 93307; 94640; 94660; 97116; 97530; A4649; A4663; J0690; J1940; J2250; J3010; J3490; J3590; J7050; J7060; P9016-BL; P9017-BL

== ENCOUNTER 2017-11-16 19:06 | Inpatient (IN) | payer MEDICARE, BC ==
[~2017-11-16] VITALS: Ht 177.8 cm; Wt 79.4 kg
[~2017-11-16 19:06] MED LIST changes: -ALBU5SOL17 IH; -CLOP75TA15 PO; -LEVO500T2 PO; +METH113C20 TP; +WARF1TAB86 PO; -WARF2.5T85 PO
[2017-11-16] MEDS ORDERED: IPRATROPIUM BROMIDE 0.5 MG/2.5 ML NEBU NEB PRN (19:30)
[2017-11-16] MEDS ORDERED: ALBUTEROL SULFATE 2.5 MG/ 0.5 ML NEBU NEB PRN (19:30)
[2017-11-16] MEDS ORDERED: ALBUTEROL SULFATE 2.5 MG/3 ML NEBU IH PRN (19:30)
[2017-11-16] MEDS ORDERED: TRIAMCINOLONE ACET 0.5% CREAM 15 GM TUBE TP PRN (19:30)
[2017-11-16] MEDS ORDERED: Z GUARD REMEDY PASTE 57 GM TUBE TOP PRN (20:15)
--- NOTE | 2017-11-16 21:00 | NUR ---
As per day shift RN, pt arrived in the unit at 1800 from Med Surg unit. Pt resting comfortably in bed. AAO x3. VSS. On 2L O2 via NC, saturating well at 96%. No acute distress noted. No c/o pain or discomfort at this time. Pertinent assessments done. Oriented pt to the unit and equipment. Head catheter draining well with clear yellow colored urine. MRSA swab done. Safety measures maintained. Call light and personal belongings within reach. Will continue to monitor.
[2017-11-16] MEDS: MIRTAZAPINE 15 MG TABLET PO SCH (21:16)
[2017-11-16] MEDS: TAMSULOSIN HCL 0.4 MG CAP.SR.24H PO SCH (21:16)
[2017-11-16] MEDS: ATORVASTATIN 20 MG TABLET PO SCH (21:16)
[2017-11-16] MEDS: MONTELUKAST SODIUM 10 MG TABLET PO SCH (21:16)
[2017-11-17] MEDS: ALPRAZOLAM 0.25 MG TABLET PO PRN (01:50)
[2017-11-17 05:00] VITALS: BP 131/62
--- NOTE | 2017-11-17 08:10 | NUR ---
Received patient, awake alert x3. Not in any form of distress, denies any pain. On O2 at 2LPM. No SOB/chest pains. Head catheter intact draining to yellow colored urine. With dressing over chest area dry, clean and intact.
[2017-11-17] MEDS: FUROSEMIDE 20 MG TABLET PO SCH (08:39)
[2017-11-17] MEDS: AMLODIPINE 5 MG TABLET PO SCH (08:39)
[2017-11-17] MEDS: CARVEDILOL 12.5 MG TABLET PO SCH ×2 (08:40→17:40)
[2017-11-17] MEDS: FLUTICASONE/VILANTEROL 1 EACH BLST.W.DEV INH SCH (08:41)
[2017-11-17] MEDS: FINASTERIDE 5 MG TABLET PO SCH (08:41)
[2017-11-17 08:42] VITALS: BP 147/64
--- NOTE | 2017-11-17 10:30 | NUR ---
Up with occupational therapy, tolerating therapy well. Complained of penile pain rated as 9/10. Offered pain medications but refused.
--- NOTE | 2017-11-17 10:46 | NUR ---
Paged [facility] regarding pain over penile area. Waiting for call back.
--- NOTE | 2017-11-17 12:40 | NUR ---
Discontinued Head catheter as ordered.
--- NOTE | 2017-11-17 14:30 | NUR ---
Seen and examined by Dr. Morrissey, drained Plurex about 1000ml output. Dr Morrissey ordered to drain PleurX every 2 days.
--- NOTE | 2017-11-17 15:24 | NUR ---
Urine output of 100cc, yellow colored urine.
[2017-11-17] MEDS: WARFARIN SODIUM 3 MG TABLET PO SCH (17:52)
[2017-11-17] MEDS ORDERED: WARFARIN SODIUM 1 MG TABLET PO SCH (18:00)
--- NOTE | 2017-11-17 19:40 | NUR ---
Pt resting in bed. AAO x3, but has episodes of confusion. On 2L O2 via NC, saturating well at 95%. No acute distress noted. No c/o pain or discomfort. Safety measures maintained. Call light and personal belongings within reach. Will continue to monitor.
[2017-11-17 20:00] VITALS: BP 129/58
[2017-11-17] MEDS: MIRTAZAPINE 15 MG TABLET PO SCH (20:49)
[2017-11-17] MEDS: MONTELUKAST SODIUM 10 MG TABLET PO SCH (20:49)
[2017-11-17] MEDS: TAMSULOSIN HCL 0.4 MG CAP.SR.24H PO SCH (20:49)
[2017-11-17] MEDS: ATORVASTATIN 20 MG TABLET PO SCH (20:49)
[2017-11-18 05:00] VITALS: BP 142/60
[2017-11-18 08:00] VITALS: BP 157/65
[2017-11-18] MEDS: FINASTERIDE 5 MG TABLET PO SCH (09:53)
[2017-11-18] MEDS: FUROSEMIDE 20 MG TABLET PO SCH (09:53)
[2017-11-18] MEDS: AMLODIPINE 5 MG TABLET PO SCH (09:54)
[2017-11-18] MEDS: FLUTICASONE/VILANTEROL 1 EACH BLST.W.DEV INH SCH (09:54)
[2017-11-18] MEDS: CARVEDILOL 12.5 MG TABLET PO SCH ×2 (09:54→16:35)
[2017-11-18 15:57] VITALS: BP 146/56
[2017-11-18] MEDS: WARFARIN SODIUM 3 MG TABLET PO SCH (16:37)
[2017-11-18 20:12] VITALS: BP 127/63
[2017-11-18] MEDS: MONTELUKAST SODIUM 10 MG TABLET PO SCH (20:26)
[2017-11-18] MEDS: MIRTAZAPINE 15 MG TABLET PO SCH (20:26)
[2017-11-18] MEDS: TAMSULOSIN HCL 0.4 MG CAP.SR.24H PO SCH (20:26)
[2017-11-18] MEDS: ATORVASTATIN 20 MG TABLET PO SCH (20:26)
--- NOTE | 2017-11-18 21:23 | NUR ---
resting in bed. on continous O2 @3L via nasal cannula, pulse ox 98%. Denies any chest pain nor any discomfort. repositioned for comfort. turned from sides to sides. left side of the back with pleural catheter intact with dressing , no drainage noted. On pleurex drainage system to be drain every 2 days. Needs attended. voiding clear yellow urine. I & O monitoe. VSS. no acute distress noted. will monitor patient.
--- NOTE | 2017-11-19 05:08 | NUR ---
slept most of the shift. aaox 3 incontinent of bowel and bladder. kept clean and dry. needs attended. no complaints of pain nor any discomfort. will monitor patient. fall precautions maintained.
[2017-11-19 06:51] LABS: BASOPHILS % (AUTO) 0.5 % (0.0-2.0); EOSINOPHILS # (AUTO) 0.5 K/uL (0.0-0.7); EOSINOPHILS % (AUTO) 8.5 % (0.0-7.0); HEMATOCRIT 26.8 % (36.7-47.1); LYMPHOCYTES # (AUTO) 0.4 K/uL (20.0-40.0); LYMPHOCYTES % (AUTO) 6.6 % (20.5-51.5); MEAN CORPUSCULAR HEMOGLOBIN 29.9 uug (23.8-33.4); MEAN CORPUSCULAR HGB CONC 34 g/dL (32.5-36.3); MEAN CORPUSCULAR VOLUME 88.9 fL (73.0-96.2); MONOCYTES # (AUTO) 0.7 K/uL (2.0-10.0); MONOCYTES % (AUTO) 12.3 % (0.0-11.0); NEUTROPHILS # (AUTO) 4.2 K/uL (1.8-8.9); NEUTROPHILS % (AUTO) 72.1 % (38.5-71.5); RED BLOOD CELL COUNT(AUTO) 3.01 MIL/uL (4.06-5.63); WHITE BLOOD COUNT (AUTO) 5.8 K/uL (3.6-10.2)
[2017-11-19 07:04] LABS: CARBON DIOXIDE 34 mmol/L (21-32); CHLORIDE 105 mmol/L (98-107); CREATININE 1.4 mg/dL (0.6-1.3); GLUCOSE 95 mg/dL (74-106); MAGNESIUM 2.2 mg/dL (1.8-2.4); PHOSPHOROUS 3.2 mg/dL (2.5-4.9); POTASSIUM 5.2 mmol/L (3.5-5.1); UREA NITROGEN, BLOOD 22 mg/dL (7-18)
[2017-11-19 07:10] LABS: PLATELET COUNT (AUTO) 235 K/uL (152-348)
[2017-11-19 08:00] VITALS: BP 151/63
[2017-11-19] MEDS: FINASTERIDE 5 MG TABLET PO SCH (08:51)
[2017-11-19] MEDS: FUROSEMIDE 20 MG TABLET PO SCH (08:52)
[2017-11-19] MEDS: FLUTICASONE/VILANTEROL 1 EACH BLST.W.DEV INH SCH (08:52)
[2017-11-19] MEDS: CARVEDILOL 12.5 MG TABLET PO SCH ×2 (08:52→15:45)
[2017-11-19] MEDS: AMLODIPINE 5 MG TABLET PO SCH (08:53)
--- NOTE | 2017-11-19 14:21 | NUR ---
PLEURX DRAINAGE 975ML OF SERO SANGUINOUS DRAINAGE REMOVED. SITE DRSG CHANGE DONE. TUBING SECURED UNDER TAPE. PROCEDURE CIERRA WELL. ABLE TO COUGH AND DEEP BREATHE SAT 96% ON 3L. IN BED RESTING QUIETLY
[2017-11-19] MEDS: WARFARIN SODIUM 3 MG TABLET PO SCH (15:45)
[2017-11-19] MEDS: ALPRAZOLAM 0.25 MG TABLET PO PRN (15:46)
[2017-11-19 16:42] VITALS: BP 133/66
--- NOTE | 2017-11-19 18:56 | NUR ---
IN BED ASLEEP RESTING QUIETLY IN NO ACUTE DISTRESS. XANAX GIVEN NOW SLEEPING. DINNER AT BEDSIDE SAYS HE WILL EAT LATER. VSS NO C/O DISTRESS
--- NOTE | 2017-11-19 19:15 | NUR ---
Received patient in bed. Alert and verbally responsive. Able to make needs known. Denies any pain and discomfort. No acute distress. No SOB. IV site on right arm. Kept clean and dry. All needs attended to promptly. Call light within reach. Will continue to monitor.
[2017-11-19 19:47] VITALS: BP 127/65
[2017-11-19] MEDS: ATORVASTATIN 20 MG TABLET PO SCH (20:30)
[2017-11-19] MEDS: MONTELUKAST SODIUM 10 MG TABLET PO SCH (20:30)
[2017-11-19] MEDS: MIRTAZAPINE 15 MG TABLET PO SCH (20:30)
[2017-11-19] MEDS: TAMSULOSIN HCL 0.4 MG CAP.SR.24H PO SCH (20:30)
[2017-11-20 06:09] VITALS: BP 135/67
--- NOTE | 2017-11-20 06:28 | NUR ---
Patient slept comfortably throughout the night. No c/o pain and discomfort. No acute distress. No SOB. Kept clean and dry. Urinal at bedside. Pericare provided. All needs attended to promptly. Call light within reach. Will continue to monitor.
[2017-11-20 08:00] VITALS: BP 146/61
[2017-11-20] MEDS: FLUTICASONE/VILANTEROL 1 EACH BLST.W.DEV INH SCH (08:46)
[2017-11-20] MEDS: FUROSEMIDE 20 MG TABLET PO SCH (08:46)
[2017-11-20] MEDS: CARVEDILOL 12.5 MG TABLET PO SCH ×2 (08:47→17:48)
[2017-11-20] MEDS: FINASTERIDE 5 MG TABLET PO SCH (08:48)
--- NOTE | 2017-11-20 08:54 | NUR ---
Patient awake, alert, verbally responsive, not in any form of acute distress. Up on the wheelchair with occupational therapist. Patient compliant, able to take his due medications.
[2017-11-20] MEDS: AMLODIPINE 5 MG TABLET PO SCH (10:11)
[2017-11-20 16:00] VITALS: BP 137/62
[2017-11-20] MEDS: WARFARIN SODIUM 3 MG TABLET PO SCH (17:49)
[2017-11-20 19:45] VITALS: BP 120/67
--- NOTE | 2017-11-20 20:00 | NUR ---
Received pt lying comfortably with HOB elevated, alert and oriented x3. Able to make needs known. No acute distress noted. Complained of left leg pain, tylenol PRN given as ordered. Pt on 1.5LPM via NC, no SOB noted, pt saturating well. Kept clean, dry and comfortable. Safety and fall precautions observed and maintained. Call light within reach. All needs attended.
[2017-11-20] MEDS: ACETAMINOPHEN 325 MG TABLET PO PRN (20:31)
[2017-11-20] MEDS: ATORVASTATIN 20 MG TABLET PO SCH (20:31)
[2017-11-20] MEDS: MIRTAZAPINE 15 MG TABLET PO SCH (20:31)
[2017-11-20] MEDS: MONTELUKAST SODIUM 10 MG TABLET PO SCH (20:31)
[2017-11-20] MEDS: TAMSULOSIN HCL 0.4 MG CAP.SR.24H PO SCH (20:31)
[2017-11-21 06:03] VITALS: BP 133/56
--- NOTE | 2017-11-21 06:32 | NUR ---
Pt slept comfortably throughout the shift with no signs/symptoms of distress noted. Verbalization of relief on his left leg noted. No SOB noted. Kept clean, dry and comfortable. Call light and personal belongings within reach. All needs attended.
[2017-11-21 07:03] VITALS: BP 136/89
[2017-11-21 07:20] LABS: BASOPHILS % (AUTO) 0.3 % (0.0-2.0); EOSINOPHILS # (AUTO) 0.6 K/uL (0.0-0.7); EOSINOPHILS % (AUTO) 14.1 % (0.0-7.0); HEMATOCRIT 26.9 % (36.7-47.1); LYMPHOCYTES # (AUTO) 0.4 K/uL (20.0-40.0); LYMPHOCYTES % (AUTO) 8.6 % (20.5-51.5); MEAN CORPUSCULAR HEMOGLOBIN 29.7 uug (23.8-33.4); MEAN CORPUSCULAR HGB CONC 34 g/dL (32.5-36.3); MEAN CORPUSCULAR VOLUME 88.9 fL (73.0-96.2); MONOCYTES # (AUTO) 0.8 K/uL (2.0-10.0); MONOCYTES % (AUTO) 17.2 % (0.0-11.0); NEUTROPHILS # (AUTO) 2.7 K/uL (1.8-8.9); NEUTROPHILS % (AUTO) 59.8 % (38.5-71.5); PLATELET COUNT (AUTO) 244 K/uL (152-348); RED BLOOD CELL COUNT(AUTO) 3.03 MIL/uL (4.06-5.63); WHITE BLOOD COUNT (AUTO) 4.5 K/uL (3.6-10.2)
[2017-11-21 07:25] LABS: ALANINE AMINOTRANSFERASE 14 U/L (16-63); ALKALINE PHOSPHATASE 73 U/L (50-136); ASPARTATE AMINOTRANSFERASE 24 U/L (15-37); BILIRUBIN,TOTAL 0.4 mg/dL (0.2-1.0); CARBON DIOXIDE 33 mmol/L (21-32); CHLORIDE 104 mmol/L (98-107); CREATININE 1.5 mg/dL (0.6-1.3); GLUCOSE 87 mg/dL (74-106); MAGNESIUM 2.2 mg/dL (1.8-2.4); PHOSPHOROUS 3.2 mg/dL (2.5-4.9); POTASSIUM 4.4 mmol/L (3.5-5.1); TOTAL PROTEIN, SERUM 5.4 g/dL (6.4-8.2); UREA NITROGEN, BLOOD 21 mg/dL (7-18)
[2017-11-21] MEDS: AMLODIPINE 5 MG TABLET PO SCH (08:35)
[2017-11-21] MEDS: FLUTICASONE/VILANTEROL 1 EACH BLST.W.DEV INH SCH (08:36)
[2017-11-21] MEDS: ACETAMINOPHEN 325 MG TABLET PO PRN (08:36)
[2017-11-21] MEDS: FINASTERIDE 5 MG TABLET PO SCH (08:36)
[2017-11-21] MEDS: FUROSEMIDE 20 MG TABLET PO SCH (08:36)
[2017-11-21] MEDS: CARVEDILOL 12.5 MG TABLET PO SCH ×2 (08:36→17:09)
[2017-11-21 08:44] LABS: EOSINOPHILS % (MANUAL) 18 % (0-8); LYMPHOCYTES % (MANUAL) 3 % (20-40); MONOCYTES % (MANUAL) 18 % (2-10); NEUTROPHILS % (MANUAL) 61 % (42-75)
--- NOTE | 2017-11-21 09:23 | NUR ---
Drainage of pleural catheter performed with 850 ml of kurt color fluid noted, MD Jose informed of drainage amount and color, all am medications taken, 650 mg tylenol given for for complaints of pain post drainage, no signs of distress, continues on 1.5 liters of O2 via nasal canula, call lightin reach, bed locked and in lowest position
[2017-11-21 16:02] VITALS: BP 130/63
[2017-11-21] MEDS: WARFARIN SODIUM 3 MG TABLET PO SCH (17:08)
--- NOTE | 2017-11-21 19:15 | NUR ---
Received patient laying in bed. Alert and verbally responsive. Able to make needs known. Denies any pain and discomfort at this time. No acute distress. No SOB. Not on oxygen at this time. Patient verbalizes he is tolerating RA. IV site on right arm patent and intact. Kept clean and dry. All needs attended to promptly. Call light within reach. Will continue to monitor.
[2017-11-21] MEDS: TAMSULOSIN HCL 0.4 MG CAP.SR.24H PO SCH (20:27)
[2017-11-21] MEDS: MONTELUKAST SODIUM 10 MG TABLET PO SCH (20:28)
[2017-11-21] MEDS: ATORVASTATIN 20 MG TABLET PO SCH (20:28)
[2017-11-21] MEDS: MIRTAZAPINE 15 MG TABLET PO SCH (20:28)
[2017-11-21 20:34] VITALS: BP 104/57
[2017-11-22 05:45] VITALS: BP 123/67
--- NOTE | 2017-11-22 06:38 | NUR ---
Patient slept comfortably throughout the night. No c/o pain and discomfort. No acute distress. No SOB. Tolerated RA throughout the night. Kept clean and dry. All needs attended to promptly. Call light within reach. Will continue to monitor.
[2017-11-22 08:00] VITALS: BP 127/56
[2017-11-22] MEDS: CARVEDILOL 12.5 MG TABLET PO SCH ×2 (08:00→17:04)
--- NOTE | 2017-11-22 08:15 | NUR ---
Patient noted resting in bed with eyes closed, no facial cues of pain noted, call light in reach, bed locked and in lowest position, bed alarm in place, x 2 bed rails
[2017-11-22] MEDS: FUROSEMIDE 20 MG TABLET PO SCH (08:56)
[2017-11-22] MEDS: FLUTICASONE/VILANTEROL 1 EACH BLST.W.DEV INH SCH (08:56)
[2017-11-22] MEDS: FINASTERIDE 5 MG TABLET PO SCH (08:56)
[2017-11-22] MEDS: AMLODIPINE 5 MG TABLET PO SCH (08:59)
[2017-11-22] MEDS: WARFARIN SODIUM 3 MG TABLET PO SCH (16:59)
--- NOTE | 2017-11-22 19:15 | NUR ---
Received patient laying in bed. Alert and verbally responsive. Able to make needs known. Denies any pain and discomfort at this time. No acute distress. No SOB. IV site on right arm patent and intact. Kept clean and dry. All needs attended to promptly. Call light within reach. Will continue to monitor
[2017-11-22 20:22] VITALS: BP 110/50
[2017-11-22] MEDS: ATORVASTATIN 20 MG TABLET PO SCH (20:33)
[2017-11-22] MEDS: MONTELUKAST SODIUM 10 MG TABLET PO SCH (20:34)
[2017-11-22] MEDS: MIRTAZAPINE 15 MG TABLET PO SCH (20:34)
[2017-11-22] MEDS: TAMSULOSIN HCL 0.4 MG CAP.SR.24H PO SCH (20:34)
[2017-11-23 05:00] VITALS: BP 108/51
--- NOTE | 2017-11-23 06:15 | NUR ---
Patient slept comfortably throughout the night. No c/o pain and discomfort. No acute distress. No SOB. Kept clean and dry. All needs attended to promptly. Call light within reach. Will continue to monitor.
--- NOTE | 2017-11-23 07:29 | NUR ---
Patient noted resting in bed with eyes closed, no facial cues of pain noted, no signs of distress, call light in reach, bed locked and in lowest position, x 2 bed rails, bed alarm in place
[2017-11-23 08:00] VITALS: BP 143/61
[2017-11-23] MEDS: FLUTICASONE/VILANTEROL 1 EACH BLST.W.DEV INH SCH (08:21)
[2017-11-23] MEDS: FINASTERIDE 5 MG TABLET PO SCH (08:22)
[2017-11-23] MEDS: FUROSEMIDE 20 MG TABLET PO SCH (08:22)
[2017-11-23] MEDS: CARVEDILOL 12.5 MG TABLET PO SCH ×2 (08:23→17:06)
[2017-11-23] MEDS: AMLODIPINE 5 MG TABLET PO SCH (08:23)
--- NOTE | 2017-11-23 13:39 | NUR ---
INTERDISCIPLINARY TEAM CONFERENCE
--- NOTE | 2017-11-23 14:38 | NUR ---
Pleur-x catheter drained with 950 ml of kurt colored fluid drained, MD Jose notified of findings.
[2017-11-23 16:00] VITALS: BP 136/63
[2017-11-23] MEDS: WARFARIN SODIUM 3 MG TABLET PO SCH (17:05)
[2017-11-23 19:30] VITALS: BP 100/47
[2017-11-23] MEDS: ATORVASTATIN 20 MG TABLET PO SCH (20:14)
[2017-11-23] MEDS: MIRTAZAPINE 15 MG TABLET PO SCH (20:14)
[2017-11-23] MEDS: MONTELUKAST SODIUM 10 MG TABLET PO SCH (20:14)
[2017-11-23] MEDS: TAMSULOSIN HCL 0.4 MG CAP.SR.24H PO SCH (20:14)
--- NOTE | 2017-11-23 20:49 | NUR ---
Received pt on bed alert and awake with no signs/symptoms of distress noted. Denies pain at this time. Pt on RA, able to tolerated well. No SOB noted. All due meds given as ordered. Kept clean, dry and comfortable. SIde rails up x2. Bed alarm on. bed locked and in lowest position. Call light within reach. All needs attended.
[2017-11-24 05:34] VITALS: BP 136/58
--- NOTE | 2017-11-24 08:00 | NUR ---
Patient awake, verbally responsive, not in any form of acute distress. He denies any pain or discomfort at this time. Call light placed within reach. Reminded to use call light for assistance with verbalized understanding. Assisted to his needs.
[2017-11-24 08:01] VITALS: BP 131/64
[2017-11-24] MEDS: FINASTERIDE 5 MG TABLET PO SCH (09:01)
[2017-11-24] MEDS: FUROSEMIDE 20 MG TABLET PO SCH (09:01)
[2017-11-24] MEDS: CARVEDILOL 12.5 MG TABLET PO SCH ×2 (09:14→17:10)
[2017-11-24] MEDS: FLUTICASONE/VILANTEROL 1 EACH BLST.W.DEV INH SCH (09:14)
[2017-11-24] MEDS: AMLODIPINE 5 MG TABLET PO SCH (09:15)
--- NOTE | 2017-11-24 15:06 | NUR ---
Notified Dr. Jose regarding PT 31.6 and INR 3.04 results and asked if OK to administer Coumadin 2mg. Per MD it is OK to administer.
[2017-11-24 16:08] VITALS: BP 148/73
[2017-11-24] MEDS ORDERED: WARFARIN SODIUM 3 MG TABLET PO SCH (17:00)
[2017-11-24] MEDS: WARFARIN SODIUM 2 MG TABLET PO SCH (17:23)
--- NOTE | 2017-11-24 20:00 | NUR ---
received pt lying comfortably on his left side alert, awake and oriented x3. Able to make needs known. pleasant, calm and cooperative to care. No apparent distress noted. no complaints of pain or discomfort. Saturating well on room air, no SOB noted. All due meds given as ordered and well tolerated. Kept clean, dry and comfortable. Encouraged to verbalize needs and concerns and to call for assistance if needed. Side rails up x2. Bed alarm on. bed locked and in lowest position. Call light within reach. All needs attended.
[2017-11-24] MEDS: ATORVASTATIN 20 MG TABLET PO SCH (20:24)
[2017-11-24] MEDS: MIRTAZAPINE 15 MG TABLET PO SCH (20:24)
[2017-11-24] MEDS: TAMSULOSIN HCL 0.4 MG CAP.SR.24H PO SCH (20:24)
[2017-11-24] MEDS: MONTELUKAST SODIUM 10 MG TABLET PO SCH (20:24)
[2017-11-24 20:38] VITALS: BP 107/45
[2017-11-25 07:20] LABS: BASOPHILS % (AUTO) 0.7 % (0.0-2.0); EOSINOPHILS # (AUTO) 0.7 K/uL (0.0-0.7); EOSINOPHILS % (AUTO) 11.7 % (0.0-7.0); HEMOGLOBIN 10.1 g/dL (12.5-16.3); LYMPHOCYTES # (AUTO) 0.7 K/uL (20.0-40.0); LYMPHOCYTES % (AUTO) 11.5 % (20.5-51.5); MEAN CORPUSCULAR HEMOGLOBIN 29.4 uug (23.8-33.4); MEAN CORPUSCULAR HGB CONC 34 g/dL (32.5-36.3); MEAN CORPUSCULAR VOLUME 87.8 fL (73.0-96.2); MONOCYTES # (AUTO) 0.7 K/uL (2.0-10.0); MONOCYTES % (AUTO) 11.5 % (0.0-11.0); NEUTROPHILS # (AUTO) 3.7 K/uL (1.8-8.9); NEUTROPHILS % (AUTO) 64.6 % (38.5-71.5); RED BLOOD CELL COUNT(AUTO) 3.42 MIL/uL (4.06-5.63)
[2017-11-25 07:32] LABS: PLATELET COUNT (AUTO) 309 K/uL (152-348); WHITE BLOOD COUNT (AUTO) 5.7 K/uL (3.6-10.2)
[2017-11-25 07:56] LABS: IRON, SERUM 30 ug/dL (50-175)
[2017-11-25 08:09] LABS: FERRITIN 153 ng/mL (26-388)
[2017-11-25 08:17] VITALS: BP 141/62
--- NOTE | 2017-11-25 08:20 | NUR ---
Received patient awake, alert x3. On room air well, sating well. No SOB or chest pains noted. Left mid chest Pleurx drainage intact. Not in any form of distress.
[2017-11-25] MEDS: CARVEDILOL 12.5 MG TABLET PO SCH ×2 (08:25→17:45)
[2017-11-25] MEDS: FUROSEMIDE 20 MG TABLET PO SCH (08:25)
[2017-11-25] MEDS: FLUTICASONE/VILANTEROL 1 EACH BLST.W.DEV INH SCH (08:25)
[2017-11-25] MEDS: AMLODIPINE 5 MG TABLET PO SCH (08:26)
[2017-11-25] MEDS: FINASTERIDE 5 MG TABLET PO SCH (08:26)
[2017-11-25 10:45] LABS: *OCCULT BLOOD STOOL NEGATIVE (NEGATIVE)
--- NOTE | 2017-11-25 11:00 | NUR ---
Up with physial therapy, tolerating well.
--- NOTE | 2017-11-25 14:00 | NUR ---
Drained Pleurx, dressing clean no leak on operative site, no redness or s/s of infection. Drained 850cc of serous sanguinous fluid. Vital signs stable, patient tolerated well. Saturation WNL at room air.
[2017-11-25 16:02] VITALS: BP 112/55
[2017-11-25] MEDS: WARFARIN SODIUM 2 MG TABLET PO SCH (17:48)
[2017-11-25 19:30] VITALS: BP 120/48
--- NOTE | 2017-11-25 19:35 | NUR ---
Received pt in bed, appearing to be asleep but easily arousable to light touch and verbal stimuli. Verbally responsive and able to make needs known. Denies pain or discomfort at this time. No acute distress noted. All safety measures and fall precautions maintained. Call light and all personal belongings within reach. Will continue to monitor.
[2017-11-25] MEDS: MIRTAZAPINE 15 MG TABLET PO SCH (21:34)
[2017-11-25] MEDS: MONTELUKAST SODIUM 10 MG TABLET PO SCH (21:34)
[2017-11-25] MEDS: ATORVASTATIN 20 MG TABLET PO SCH (21:34)
[2017-11-25] MEDS: TAMSULOSIN HCL 0.4 MG CAP.SR.24H PO SCH (21:34)
--- NOTE | 2017-11-26 06:58 | NUR ---
Pt SLEPT WELL THROUGHOUT THE NIGHT WITHOUT ANY DISRUPTIONS. IN STABLE CONDITION, NO DISTRESS NOTED. CONTINUES TO BE COMPLIANT AND COOPERATIVE WITH MEDS AND CARE STAFF.
[2017-11-26 08:00] VITALS: BP 131/65
[2017-11-26] MEDS: CARVEDILOL 12.5 MG TABLET PO SCH ×2 (08:00→17:22)
[2017-11-26] MEDS: FUROSEMIDE 20 MG TABLET PO SCH (08:52)
[2017-11-26] MEDS: FLUTICASONE/VILANTEROL 1 EACH BLST.W.DEV INH SCH (08:52)
[2017-11-26] MEDS: FINASTERIDE 5 MG TABLET PO SCH (08:52)
[2017-11-26] MEDS: AMLODIPINE 5 MG TABLET PO SCH (08:53)
--- NOTE | 2017-11-26 09:26 | NUR ---
Patient noted resting in bed, denies pain at this time, no signs of distress noted, call light in reach, bed locked and in lowest position, x2 bed rails, all needs met at this time
[2017-11-26 13:06] LABS: VIT D, 25-HYDROXY 19.9 ng/mL (30.0-100.0)
[2017-11-26 16:00] VITALS: BP 120/61
[2017-11-26] MEDS: WARFARIN SODIUM 2 MG TABLET PO SCH (17:25)
[2017-11-26 19:30] VITALS: BP 103/56
--- NOTE | 2017-11-26 20:00 | NUR ---
Received pt on bed awake, alert and oriented x3. Able to make needs known. Pleasant, calm and cooperative to care. No apparent distress noted. Denies pain at this time. Breathing even and unlabored with normal respirations. Call light and personal belongings within reach. Kept clean, dry and comfortable. side rails up x2. Bed alarm on. All needs attended.
[2017-11-26] MEDS: ATORVASTATIN 20 MG TABLET PO SCH (20:15)
[2017-11-26] MEDS: MIRTAZAPINE 15 MG TABLET PO SCH (20:15)
[2017-11-26] MEDS: MONTELUKAST SODIUM 10 MG TABLET PO SCH (20:15)
[2017-11-26] MEDS: TAMSULOSIN HCL 0.4 MG CAP.SR.24H PO SCH (20:15)
[2017-11-26] MEDS: ACETAMINOPHEN 325 MG TABLET PO PRN (20:41)
--- NOTE | 2017-11-27 07:47 | NUR ---
Patient noted resting in bed with eyes closed, no facial cues of pain, no signs of distress noted, call light in reach, bed locked and in lowest position, x [address], all needs met at this time
[2017-11-27 08:00] VITALS: BP 130/70
[2017-11-27] MEDS: FLUTICASONE/VILANTEROL 1 EACH BLST.W.DEV INH SCH (08:53)
[2017-11-27] MEDS: AMLODIPINE 5 MG TABLET PO SCH (08:54)
[2017-11-27] MEDS: FINASTERIDE 5 MG TABLET PO SCH (08:54)
[2017-11-27] MEDS: FUROSEMIDE 20 MG TABLET PO SCH (08:54)
[2017-11-27] MEDS: CARVEDILOL 12.5 MG TABLET PO SCH ×2 (08:55→17:10)
--- NOTE | 2017-11-27 14:28 | NUR ---
750 ML OF FLUID DRAINED FROM PLEUX CATHETER
[2017-11-27] MEDS: WARFARIN SODIUM 2 MG TABLET PO SCH (17:10)
--- NOTE | 2017-11-27 18:46 | NUR ---
Report given to Rani PALOMO from of [facility] at 1850 Addendum: 11/27/17 at 1855 by DANTE KAUR RN endorsement given to casino shift manager to discharge patient
[2017-11-27] MEDS: MONTELUKAST SODIUM 10 MG TABLET PO SCH (20:07)
[2017-11-27] MEDS: ATORVASTATIN 20 MG TABLET PO SCH (20:07)
[2017-11-27] MEDS: MIRTAZAPINE 15 MG TABLET PO SCH (20:07)
[2017-11-27] MEDS: TAMSULOSIN HCL 0.4 MG CAP.SR.24H PO SCH (20:07)
[2017-11-27 20:54] VITALS: BP 118/70
[2017-11-28 12:07] LABS: CALCITRIOL VIT D,1,25 DIHYDROX 12.7 pg/mL (19.9-79.3)
== END 2017-11-27 21:00 | disposition home health service (06) | DRG 291 ==
PROVIDERS: ADMIT Physical Medicine & Rehabilitation Pain Medicine; ATTEND Physical Medicine & Rehabilitation Pain Medicine
DX: I13.0 Hypertensive heart and chronic kidney disease with heart failure and stage 1 through stage 4 chronic kidney disease, or unspecified chronic kidney disease (principal); I50.33 Acute on chronic diastolic (congestive) heart failure; N17.0 Acute kidney failure with tubular necrosis; E43 Unspecified severe protein-calorie malnutrition; D68.59 Other primary thrombophilia; E87.5 Hyperkalemia; I27.20 Pulmonary hypertension, unspecified; I48.92 Unspecified atrial flutter; I42.8 Other cardiomyopathies; J44.9 Chronic obstructive pulmonary disease, unspecified; F03.90 Unspecified dementia, unspecified severity, without behavioral disturbance, psychotic disturbance, mood disturbance, and anxiety; Z95.1 Presence of aortocoronary bypass graft; M19.90 Unspecified osteoarthritis, unspecified site; N18.9 Chronic kidney disease, unspecified; N40.0 Benign prostatic hyperplasia without lower urinary tract symptoms; I25.10 Atherosclerotic heart disease of native coronary artery without angina pectoris; E78.5 Hyperlipidemia, unspecified; D50.9 Iron deficiency anemia, unspecified; E55.9 Vitamin D deficiency, unspecified; I35.0 Nonrheumatic aortic (valve) stenosis; Z82.49 Family history of ischemic heart disease and other diseases of the circulatory system; Z95.810 Presence of automatic (implantable) cardiac defibrillator; Z79.01 Long term (current) use of anticoagulants; Z91.09 Other allergy status, other than to drugs and biological substances
CPT/HCPCS: 36415; 70030-TC; 82306; 82652; 83550; 83735; 83970; 84100; 85025; 85610; 92523; 92526; 92610; 97110; 97112; 97116; 97530; 97535